=== PATIENT | male | born 1970 | race Two or more races ===

== ENCOUNTER 2021-03-23 15:58 | Inpatient (IN) | payer OTHER ==
[2021-03-23] MEDS ORDERED: PIPERACILLIN/TAZOB 4.5 GM 4.5 GM in DEXTROSE 5%-WATER 100 ML IVPB ONE (17:43)
[2021-03-23] MEDS ORDERED: VANCOMYCIN 1 GM in D5W (PRE-DOCKED) 1,000 MG/250 ML IVPB ONE (17:44)
[2021-03-23 18:17] LABS: BASO % 0.3 % (0-2.0); EOS % 1.7 % (0-4.5); HEMATOCRIT 43.2 % (35.4-49); HEMOGLOBIN 14.8 GM/dL (11.7-16.9); LYMPH % 13.3 % (8-40); MCH 29.8 pg (25.7-33.7); MCHC 34.2 g/dl (32.0-35.9); MEAN CELL VOLUME 87.3 fl (80-96); MEAN PLT VOLUME 8.1 fl (7.5-11.1); MONO % 10.3 % (3.8-10.2); NEUT % 74.4 % (42.8-82.8); PLATELET COUNT 290 10^3/uL (134-434); RBC 4.95 M/mm3 (4.00-5.60); RDW 12.7 % (11.9-15.9); WHITE BLOOD COUNT 10.6 K/mm3 (4.0-10.0)
[2021-03-23 18:39] LABS: ALBUMIN 3.4 g/dl (3.4-5.0); BLOOD UREA NITROGEN 13.4 mg/dL (7-18); CALCIUM 8.9 mg/dL (8.5-10.1)
[2021-03-23 18:42] LABS: CREATININE 0.7 mg/dL (0.55-1.3)
[2021-03-23 18:44] LABS: BILIRUBIN,TOTAL 0.5 mg/dL (0.2-1); TOT PROT 7.1 g/dl (6.4-8.2)
[2021-03-23] MEDS ORDERED: VANCOMYCIN 1 GRAM (PRE-DOCKED) 1,000 MG/250 ML BAG IVPB ONE (18:52)
[2021-03-23] MEDS ORDERED: PIPERACILLIN/TAZOB 4.5 GM 4.5 GM/100 ML BAG IVPB ONE (18:52)
[2021-03-23] MEDS: INSULIN SLIDING SCALE (NOVOLOG) 1 VIAL SQ SCH (22:30)
[2021-03-24 04:29] VITALS: BMI 27.3
[2021-03-24] MEDS: INSULIN SLIDING SCALE (NOVOLOG) 1 VIAL SQ SCH ×3 (06:11→16:45)
[2021-03-24] MEDS ORDERED: PIPERACILLIN/TAZOB 3.375 GM 3.375 GM in DEXTROSE 5%-WATER - 50 ML IVPB SCH (06:53)
[2021-03-24] MEDS: ACETAMINOPHEN 325 MG TABLET (FP) PO PRN ×2 (08:27→19:50)
[2021-03-24] MEDS ORDERED: DEXTROSE 5%-WATER - 50 ML IVPB ONE ×2 (09:09→16:38)
[2021-03-24] MEDS ORDERED: PIPERACILLIN/TAZOBACTAM 3.375 GM VIAL IVPB ONE ×2 (09:09→16:37)
[2021-03-24] MEDS: PIPERACILLIN/TAZOB 3.375 GM 3.375 GM in DEXTROSE 5%-WATER - 50 ML IVPB SCH ×2 (09:47→17:49)
[2021-03-24] MEDS: ENOXAPARIN NA (PORCINE) 40 MG/0.4 ML DISP.SYRIN SQ SCH (09:48)
[2021-03-24 10:14] LABS: HEMATOCRIT 40.7 % (35.4-49); HEMOGLOBIN 14.1 GM/dL (11.7-16.9); MCH 30.1 pg (25.7-33.7); MCHC 34.7 g/dl (32.0-35.9); MEAN CELL VOLUME 86.9 fl (80-96); MEAN PLT VOLUME 7.6 fl (7.5-11.1); PLATELET COUNT 261 10^3/uL (134-434); RBC 4.68 M/mm3 (4.00-5.60); RDW 12.4 % (11.9-15.9); WHITE BLOOD COUNT 9.5 K/mm3 (4.0-10.0)
[2021-03-24 10:32] LABS: CALCIUM 8.7 mg/dL (8.5-10.1)
[2021-03-24 10:33] LABS: ALBUMIN 3.2 g/dl (3.4-5.0); BLOOD UREA NITROGEN 10.5 mg/dL (7-18)
[2021-03-24 10:36] LABS: CREATININE 0.7 mg/dL (0.55-1.3); PHOSPHOROUS 2.6 mg/dL (2.5-4.9)
[2021-03-24 10:37] LABS: BILIRUBIN,TOTAL 0.6 mg/dL (0.2-1); CHOLESTEROL 154 mg/dL (50-200); TOT PROT 6.8 g/dl (6.4-8.2)
[2021-03-24 10:38] LABS: LDL CHOLESTEROL (ONLY SJRH) 90 mg/dL (5-100); TRIGLYCERIDES 109 mg/dL (0-150)
[2021-03-24 10:39] LABS: HDL CHOLESTEROL 45 mg/dL (40-60)
[2021-03-24] MEDS: COLLAGENASE CLOSTRIDIUM HIST. 30 GRAMS TUBE TP SCH (12:17)
[2021-03-24] MEDS: GABAPENTIN 100 MG CAPSULE PO SCH ×2 (12:17→22:02)
[2021-03-24] MEDS ORDERED: VANCOMYCIN 1 GM in D5W (PRE-DOCKED) 1,000 MG/250 ML IVPB SCH (19:00)
[2021-03-25] MEDS ORDERED: DEXTROSE 5%-WATER - 50 ML IVPB ONE ×3 (02:19→17:09)
[2021-03-25] MEDS ORDERED: PIPERACILLIN/TAZOBACTAM 3.375 GM VIAL IVPB ONE ×3 (02:19→17:09)
[2021-03-25] MEDS: PIPERACILLIN/TAZOB 3.375 GM 3.375 GM in DEXTROSE 5%-WATER - 50 ML IVPB SCH ×3 (02:27→18:28)
[2021-03-25] MEDS: ACETAMINOPHEN 325 MG TABLET (FP) PO PRN ×3 (02:37→23:11)
[2021-03-25] MEDS: INSULIN SLIDING SCALE (NOVOLOG) 1 VIAL SQ SCH ×3 (06:07→17:13)
[2021-03-25] MEDS ORDERED: INSULIN (LEVEMIR) 100 UNITS/ML UNITS SQ ONE (06:17)
[2021-03-25] MEDS ORDERED: INSULIN (LEVEMIR) 100 UNITS/ML UNITS SQ SCH ×2 (07:00→20:13)
[2021-03-25 10:21] LABS: BASO % 0.4 % (0-2.0); EOS % 1.3 % (0-4.5); HEMATOCRIT 40.3 % (35.4-49); HEMOGLOBIN 13.9 GM/dL (11.7-16.9); LYMPH % 10.1 % (8-40); MCH 29.8 pg (25.7-33.7); MCHC 34.5 g/dl (32.0-35.9); MEAN CELL VOLUME 86.3 fl (80-96); MONO % 10.6 % (3.8-10.2); NEUT % 77.6 % (42.8-82.8); PLATELET COUNT 289 10^3/uL (134-434); RBC 4.66 M/mm3 (4.00-5.60); RDW 12.5 % (11.9-15.9)
[2021-03-25 10:56] LABS: CALCIUM 8.4 mg/dL (8.5-10.1)
[2021-03-25 10:57] LABS: ALBUMIN 2.8 g/dl (3.4-5.0); BLOOD UREA NITROGEN 9.2 mg/dL (7-18); MAGNESIUM 1.8 mg/dL (1.8-2.4)
[2021-03-25 11:00] LABS: CREATININE 0.6 mg/dL (0.55-1.3); PHOSPHOROUS 2.8 mg/dL (2.5-4.9)
[2021-03-25 11:01] LABS: TOT PROT 6.3 g/dl (6.4-8.2)
[2021-03-25 11:02] LABS: BILIRUBIN,TOTAL 0.6 mg/dL (0.2-1)
[2021-03-25] MEDS: COLLAGENASE CLOSTRIDIUM HIST. 30 GRAMS TUBE TP SCH (11:03)
[2021-03-25] MEDS: GABAPENTIN 100 MG CAPSULE PO SCH ×2 (11:03→21:41)
[2021-03-25] MEDS: ENOXAPARIN NA (PORCINE) 40 MG/0.4 ML DISP.SYRIN SQ SCH (11:03)
[2021-03-26] MEDS ORDERED: PIPERACILLIN/TAZOBACTAM 3.375 GM VIAL IVPB ONE ×3 (01:13→15:50)
[2021-03-26] MEDS ORDERED: DEXTROSE 5%-WATER - 50 ML IVPB ONE ×3 (01:14→15:50)
[2021-03-26] MEDS: PIPERACILLIN/TAZOB 3.375 GM 3.375 GM in DEXTROSE 5%-WATER - 50 ML IVPB SCH ×3 (01:22→17:20)
[2021-03-26] MEDS: INSULIN SLIDING SCALE (NOVOLOG) 1 VIAL SQ SCH ×4 (06:01→21:09)
[2021-03-26] MEDS: metFORMIN HCL 500 MG TABLET (FP) PO SCH ×2 (06:01→16:05)
[2021-03-26] MEDS: ENOXAPARIN NA (PORCINE) 40 MG/0.4 ML DISP.SYRIN SQ SCH (08:59)
[2021-03-26] MEDS: GABAPENTIN 100 MG CAPSULE PO SCH ×2 (08:59→20:59)
[2021-03-26] MEDS ORDERED: INSULIN (NOVOLOG) ASPART 100 UNITS/ML 10ML VIAL ONE (11:47)
[2021-03-26] MEDS: COLLAGENASE CLOSTRIDIUM HIST. 30 GRAMS TUBE TP SCH (12:08)
[2021-03-26] MEDS ORDERED: GABAPENTIN 100 MG CAPSULE PO ONE (13:34)
[2021-03-26] MEDS: ACETAMINOPHEN 325 MG TABLET (FP) PO PRN (21:00)
[2021-03-26] MEDS: INSULIN (LEVEMIR) 100 UNITS/ML UNITS SQ SCH (21:03)
[2021-03-27] MEDS: PIPERACILLIN/TAZOB 3.375 GM 3.375 GM in DEXTROSE 5%-WATER - 50 ML IVPB SCH ×3 (01:40→17:22)
[2021-03-27] MEDS ORDERED: PIPERACILLIN/TAZOBACTAM 3.375 GM VIAL IVPB ONE ×3 (01:40→17:15)
[2021-03-27] MEDS ORDERED: DEXTROSE 5%-WATER - 50 ML IVPB ONE ×3 (01:40→17:15)
[2021-03-27] MEDS: INSULIN (LEVEMIR) 100 UNITS/ML UNITS SQ SCH ×2 (06:18→21:40)
[2021-03-27] MEDS: metFORMIN HCL 500 MG TABLET (FP) PO SCH (06:19)
[2021-03-27] MEDS: INSULIN SLIDING SCALE (NOVOLOG) 1 VIAL SQ SCH ×4 (06:19→21:39)
[2021-03-27] MEDS: GABAPENTIN 100 MG CAPSULE PO SCH ×2 (09:19→21:33)
[2021-03-27] MEDS: ENOXAPARIN NA (PORCINE) 40 MG/0.4 ML DISP.SYRIN SQ SCH (09:19)
[2021-03-27] MEDS: COLLAGENASE CLOSTRIDIUM HIST. 30 GRAMS TUBE TP SCH (09:19)
[2021-03-27 12:25] LABS: HEMOGLOBIN 13.7 GM/dL (11.7-16.9); MCH 29.9 pg (25.7-33.7); MCHC 34.2 g/dl (32.0-35.9); MEAN CELL VOLUME 87.4 fl (80-96); MEAN PLT VOLUME 7.6 fl (7.5-11.1); PLATELET COUNT 322 10^3/uL (134-434); RBC 4.58 M/mm3 (4.00-5.60); RDW 12.7 % (11.9-15.9); WHITE BLOOD COUNT 10.7 K/mm3 (4.0-10.0)
[2021-03-27 13:28] LABS: CALCIUM 8.7 mg/dL (8.5-10.1)
[2021-03-27 13:29] LABS: BLOOD UREA NITROGEN 10.3 mg/dL (7-18)
[2021-03-27 13:32] LABS: CREATININE 0.7 mg/dL (0.55-1.3); PHOSPHOROUS 3.6 mg/dL (2.5-4.9)
[2021-03-27] MEDS: SODIUM CHLORIDE 1,000 ML IV SCH (16:33)
[2021-03-27] MEDS: DOXYCYCLINE HYCLATE 100 MG CAPSULE PO SCH (17:22)
[2021-03-28] MEDS ORDERED: PIPERACILLIN/TAZOBACTAM 3.375 GM VIAL IVPB ONE ×3 (01:27→18:30)
[2021-03-28] MEDS ORDERED: DEXTROSE 5%-WATER - 50 ML IVPB ONE ×3 (01:27→18:31)
[2021-03-28] MEDS: PIPERACILLIN/TAZOB 3.375 GM 3.375 GM in DEXTROSE 5%-WATER - 50 ML IVPB SCH ×3 (01:31→18:35)
[2021-03-28] MEDS: SODIUM CHLORIDE 1,000 ML IV SCH ×2 (03:27→16:48)
[2021-03-28] MEDS: INSULIN (LEVEMIR) 100 UNITS/ML UNITS SQ SCH ×2 (06:07→21:36)
[2021-03-28] MEDS: INSULIN SLIDING SCALE (NOVOLOG) 1 VIAL SQ SCH ×4 (06:08→21:35)
[2021-03-28] MEDS ORDERED: LIDOCAINE HCL 1%, 10 MG/ML (20ML VIAL) ONE (11:21)
[2021-03-28] MEDS ORDERED: ONDANSETRON 4 MG/2 ML VIAL IVPUSH PRN (11:37)
[2021-03-28] MEDS ORDERED: PROMETHAZINE HCL 25 MG/1 ML VIAL IVPUSH PRN (11:37)
[2021-03-28] MEDS ORDERED: PROPOFOL 20 ML ONE (11:44)
[2021-03-28] MEDS ORDERED: MIDAZOLAM HCL 2 MG/2 ML SINGLE DOSE VIAL ONE (11:44)
[2021-03-28] MEDS ORDERED: LACTATED RINGERS SOLUTION 1,000 ML IV SCH (11:45)
[2021-03-28] MEDS ORDERED: GLYCOPYRROLATE 0.2 MG/1 ML VIAL ONE (11:45)
[2021-03-28] MEDS ORDERED: LIDOCAINE HCL/PF 2% SDV 5ML VIAL ONE (11:46)
[2021-03-28] MEDS ORDERED: BUPIVACAINE HCL/PF 0.5% (5MG/ML) 10 ML VIAL ONE (12:28)
[2021-03-28] MEDS ORDERED: BUPIVACAINE HCL/PF 0.5% (5 MG/ML) 30 ML VIAL IJ ONE (12:34)
[2021-03-28] MEDS ORDERED: ACETAMINOPHEN 1000 MG/100 ML BAG IVPB ONE (12:56)
[2021-03-28] MEDS: ENOXAPARIN NA (PORCINE) 40 MG/0.4 ML DISP.SYRIN SQ SCH (14:12)
[2021-03-28] MEDS: GABAPENTIN 100 MG CAPSULE PO SCH ×2 (14:12→21:35)
[2021-03-28] MEDS: DOXYCYCLINE HYCLATE 100 MG CAPSULE PO SCH ×2 (14:13→18:25)
[2021-03-28] MEDS: COLLAGENASE CLOSTRIDIUM HIST. 30 GRAMS TUBE TP SCH (14:13)
[2021-03-29] MEDS ORDERED: DEXTROSE 5%-WATER - 50 ML IVPB ONE ×3 (00:59→17:28)
[2021-03-29] MEDS ORDERED: PIPERACILLIN/TAZOBACTAM 3.375 GM VIAL IVPB ONE ×3 (00:59→17:27)
[2021-03-29] MEDS: PIPERACILLIN/TAZOB 3.375 GM 3.375 GM in DEXTROSE 5%-WATER - 50 ML IVPB SCH ×3 (01:03→17:57)
[2021-03-29] MEDS ORDERED: ONDANSETRON 4 MG/2 ML VIAL IVPB ONE (01:22)
[2021-03-29] MEDS: ACETAMINOPHEN 325 MG TABLET (FP) PO PRN (05:25)
[2021-03-29] MEDS: INSULIN SLIDING SCALE (NOVOLOG) 1 VIAL SQ SCH ×4 (06:00→21:26)
[2021-03-29] MEDS: INSULIN (LEVEMIR) 100 UNITS/ML UNITS SQ SCH ×2 (06:01→21:21)
[2021-03-29] MEDS: ENOXAPARIN NA (PORCINE) 40 MG/0.4 ML DISP.SYRIN SQ SCH (10:06)
[2021-03-29] MEDS: GABAPENTIN 100 MG CAPSULE PO SCH ×2 (10:07→21:21)
[2021-03-29] MEDS: COLLAGENASE CLOSTRIDIUM HIST. 30 GRAMS TUBE TP SCH (10:07)
[2021-03-29] MEDS: DOXYCYCLINE HYCLATE 100 MG CAPSULE PO SCH ×2 (10:07→17:57)
[2021-03-29 10:29] LABS: BASO % 0.5 % (0-2.0); EOS % 1.6 % (0-4.5); HEMATOCRIT 39.4 % (35.4-49); HEMOGLOBIN 13.1 GM/dL (11.7-16.9); LYMPH % 15.1 % (8-40); MCHC 33.1 g/dl (32.0-35.9); MEAN CELL VOLUME 87.7 fl (80-96); MEAN PLT VOLUME 7.7 fl (7.5-11.1); MONO % 9.6 % (3.8-10.2); NEUT % 73.2 % (42.8-82.8); PLATELET COUNT 346 10^3/uL (134-434); RDW 12.3 % (11.9-15.9); WHITE BLOOD COUNT 8.9 K/mm3 (4.0-10.0)
[2021-03-29 10:54] LABS: ALBUMIN 2.6 g/dl (3.4-5.0); BLOOD UREA NITROGEN 8.6 mg/dL (7-18); CALCIUM 8.5 mg/dL (8.5-10.1); MAGNESIUM 1.8 mg/dL (1.8-2.4)
[2021-03-29 10:56] LABS: PHOSPHOROUS 3.5 mg/dL (2.5-4.9)
[2021-03-29 10:57] LABS: CREATININE 0.7 mg/dL (0.55-1.3)
[2021-03-29 10:59] LABS: BILIRUBIN,TOTAL 0.4 mg/dL (0.2-1); TOT PROT 6.4 g/dl (6.4-8.2)
[2021-03-29] MEDS ORDERED: INSULIN (NOVOLOG) ASPART 100 UNITS/ML 10ML VIAL ONE (21:17)
[2021-03-30] MEDS ORDERED: DEXTROSE 5%-WATER - 50 ML IVPB ONE ×3 (01:15→17:19)
[2021-03-30] MEDS ORDERED: PIPERACILLIN/TAZOBACTAM 3.375 GM VIAL IVPB ONE ×3 (01:15→17:18)
[2021-03-30] MEDS: PIPERACILLIN/TAZOB 3.375 GM 3.375 GM in DEXTROSE 5%-WATER - 50 ML IVPB SCH ×3 (01:23→17:22)
[2021-03-30] MEDS: INSULIN SLIDING SCALE (NOVOLOG) 1 VIAL SQ SCH ×4 (06:23→21:08)
[2021-03-30] MEDS: INSULIN (LEVEMIR) 100 UNITS/ML UNITS SQ SCH ×2 (06:23→21:05)
[2021-03-30] MEDS: DOXYCYCLINE HYCLATE 100 MG CAPSULE PO SCH ×2 (09:24→17:22)
[2021-03-30] MEDS: GABAPENTIN 100 MG CAPSULE PO SCH ×2 (09:24→21:03)
[2021-03-30] MEDS: COLLAGENASE CLOSTRIDIUM HIST. 30 GRAMS TUBE TP SCH (09:25)
[2021-03-30] MEDS: ENOXAPARIN NA (PORCINE) 40 MG/0.4 ML DISP.SYRIN SQ SCH (09:25)
[2021-03-30 11:42] LABS: BASO % 0.6 % (0-2.0); EOS % 1.4 % (0-4.5); HEMATOCRIT 39.1 % (35.4-49); HEMOGLOBIN 12.9 GM/dL (11.7-16.9); LYMPH % 10.8 % (8-40); MCH 28.9 pg (25.7-33.7); MEAN CELL VOLUME 87.5 fl (80-96); MEAN PLT VOLUME 7.6 fl (7.5-11.1); MONO % 8.3 % (3.8-10.2); NEUT % 78.9 % (42.8-82.8); PLATELET COUNT 372 10^3/uL (134-434); RBC 4.46 M/mm3 (4.00-5.60); RDW 12.5 % (11.9-15.9)
[2021-03-30 12:07] LABS: ALBUMIN 2.7 g/dl (3.4-5.0); BLOOD UREA NITROGEN 10.3 mg/dL (7-18); CALCIUM 8.4 mg/dL (8.5-10.1); MAGNESIUM 1.8 mg/dL (1.8-2.4)
[2021-03-30 12:11] LABS: CREATININE 0.7 mg/dL (0.55-1.3); PHOSPHOROUS 3.6 mg/dL (2.5-4.9)
[2021-03-30 12:12] LABS: BILIRUBIN,TOTAL 0.5 mg/dL (0.2-1); TOT PROT 6.6 g/dl (6.4-8.2)
[2021-03-30] MEDS: ACETAMINOPHEN 325 MG TABLET (FP) PO PRN (15:21)
[2021-03-31] MEDS ORDERED: PIPERACILLIN/TAZOBACTAM 3.375 GM VIAL IVPB ONE ×3 (01:12→17:43)
[2021-03-31] MEDS ORDERED: DEXTROSE 5%-WATER - 50 ML IVPB ONE ×3 (01:12→17:43)
[2021-03-31] MEDS: PIPERACILLIN/TAZOB 3.375 GM 3.375 GM in DEXTROSE 5%-WATER - 50 ML IVPB SCH ×3 (01:15→17:46)
[2021-03-31] MEDS: ACETAMINOPHEN 325 MG TABLET (FP) PO PRN (03:13)
[2021-03-31] MEDS: INSULIN (LEVEMIR) 100 UNITS/ML UNITS SQ SCH ×2 (06:13→21:45)
[2021-03-31] MEDS: INSULIN SLIDING SCALE (NOVOLOG) 1 VIAL SQ SCH ×4 (06:14→21:45)
[2021-03-31] MEDS: DOXYCYCLINE HYCLATE 100 MG CAPSULE PO SCH ×2 (10:35→17:46)
[2021-03-31] MEDS: PANTOPRAZOLE 20 MG TABLET PO SCH (10:35)
[2021-03-31] MEDS: GABAPENTIN 100 MG CAPSULE PO SCH ×2 (10:35→21:43)
[2021-03-31 11:48] LABS: BASO % 0.5 % (0-2.0); EOS % 2.5 % (0-4.5); HEMATOCRIT 39.9 % (35.4-49); HEMOGLOBIN 13.5 GM/dL (11.7-16.9); LYMPH % 13.5 % (8-40); MCH 29.3 pg (25.7-33.7); MCHC 33.8 g/dl (32.0-35.9); MEAN CELL VOLUME 86.8 fl (80-96); MEAN PLT VOLUME 7.6 fl (7.5-11.1); MONO % 7.9 % (3.8-10.2); NEUT % 75.6 % (42.8-82.8); PLATELET COUNT 386 10^3/uL (134-434); RDW 12.4 % (11.9-15.9); WHITE BLOOD COUNT 9.4 K/mm3 (4.0-10.0)
[2021-03-31 12:10] LABS: ALBUMIN 2.7 g/dl (3.4-5.0)
[2021-03-31 12:11] LABS: MAGNESIUM 1.9 mg/dL (1.8-2.4)
[2021-03-31 12:12] LABS: BLOOD UREA NITROGEN 11.4 mg/dL (7-18)
[2021-03-31 12:13] LABS: BILIRUBIN,TOTAL 0.5 mg/dL (0.2-1); TOT PROT 6.9 g/dl (6.4-8.2)
[2021-03-31 12:14] LABS: CREATININE 0.7 mg/dL (0.55-1.3)
[2021-03-31] MEDS: COLLAGENASE CLOSTRIDIUM HIST. 30 GRAMS TUBE TP SCH (13:01)
[2021-03-31 16:41] LABS: PH,URINE 5.5 (5.0-8.0); URINE APPEARANCE CLEAR; URINE BILIRUBIN NEGATIVE (NEGATIVE); URINE COLOR YELLOW; URINE GLUCOSE (UA) NEGATIVE (NEGATIVE); URINE KETONE NEGATIVE (NEGATIVE); URINE LEUK ESTERASE NEGATIVE (NEGATIVE); URINE NITRITE NEGATIVE (NEGATIVE); URINE PROTEIN NEGATIVE (NEGATIVE); URINE UROBILINOGEN 0.2 mg/dL (0.2-1.0)
[2021-04-01] MEDS ORDERED: DEXTROSE 5%-WATER - 50 ML IVPB ONE ×2 (00:22→09:15)
[2021-04-01] MEDS ORDERED: PIPERACILLIN/TAZOBACTAM 3.375 GM VIAL IVPB ONE ×2 (00:22→09:15)
[2021-04-01] MEDS: PIPERACILLIN/TAZOB 3.375 GM 3.375 GM in DEXTROSE 5%-WATER - 50 ML IVPB SCH ×2 (01:10→09:22)
[2021-04-01] MEDS: INSULIN (LEVEMIR) 100 UNITS/ML UNITS SQ SCH ×2 (06:12→21:11)
[2021-04-01] MEDS: INSULIN SLIDING SCALE (NOVOLOG) 1 VIAL SQ SCH ×3 (06:12→16:31)
[2021-04-01] MEDS: ACETAMINOPHEN 325 MG TABLET (FP) PO PRN (06:18)
[2021-04-01 09:07] LABS: CALCIUM 8.5 mg/dL (8.5-10.1)
[2021-04-01 09:08] LABS: ALBUMIN 2.8 g/dl (3.4-5.0); MAGNESIUM 1.8 mg/dL (1.8-2.4)
[2021-04-01 09:09] LABS: BASO % 0.7 % (0-2.0); EOS % 2.7 % (0-4.5); HEMATOCRIT 41.3 % (35.4-49); HEMOGLOBIN 14.1 GM/dL (11.7-16.9); MCH 29.6 pg (25.7-33.7); MCHC 34.1 g/dl (32.0-35.9); MEAN CELL VOLUME 86.9 fl (80-96); MEAN PLT VOLUME 7.2 fl (7.5-11.1); MONO % 8.6 % (3.8-10.2); PLATELET COUNT 389 10^3/uL (134-434); RBC 4.75 M/mm3 (4.00-5.60); RDW 12.5 % (11.9-15.9); WHITE BLOOD COUNT 9.2 K/mm3 (4.0-10.0)
[2021-04-01 09:11] LABS: CREATININE 0.8 mg/dL (0.55-1.3); PHOSPHOROUS 3.6 mg/dL (2.5-4.9)
[2021-04-01 09:12] LABS: TOT PROT 7.2 g/dl (6.4-8.2)
[2021-04-01 09:16] LABS: BILIRUBIN,TOTAL 0.4 mg/dL (0.2-1)
[2021-04-01] MEDS: GABAPENTIN 100 MG CAPSULE PO SCH ×2 (09:21→21:11)
[2021-04-01] MEDS: PANTOPRAZOLE 20 MG TABLET PO SCH (09:21)
[2021-04-01] MEDS: DOXYCYCLINE HYCLATE 100 MG CAPSULE PO SCH (09:21)
[2021-04-01] MEDS ORDERED: SODIUM CHLORIDE 100 ML IVPB ONE (14:03)
[2021-04-01] MEDS: SODIUM CHLORIDE 1,000 ML IV SCH (14:16)
[2021-04-01] MEDS: CEFTRIAXONE IVPB SCH (14:18)
[2021-04-01] MEDS: SODIUM CHLORIDE IVPB SCH (14:18)
[2021-04-01] MEDS: INSULIN (NOVOLOG) ASPART 100 UNITS/ML 10ML VIAL SQ SCH (16:31)
[2021-04-01] MEDS ORDERED: PIPERACILLIN/TAZOB 3.375 GM 3.375 GM in DEXTROSE 5%-WATER - 50 ML IVPB SCH (18:00)
[2021-04-02] MEDS: SODIUM CHLORIDE 1,000 ML IV SCH ×2 (01:08→17:15)
[2021-04-02] MEDS: INSULIN (NOVOLOG) ASPART 100 UNITS/ML 10ML VIAL SQ SCH ×3 (06:23→17:14)
[2021-04-02] MEDS: INSULIN (LEVEMIR) 100 UNITS/ML UNITS SQ SCH ×2 (06:24→21:19)
[2021-04-02] MEDS: INSULIN SLIDING SCALE (NOVOLOG) 1 VIAL SQ SCH ×3 (06:24→17:14)
[2021-04-02 09:34] LABS: BASO % 0.8 % (0-2.0); EOS % 2.7 % (0-4.5); HEMATOCRIT 39.8 % (35.4-49); HEMOGLOBIN 13.1 GM/dL (11.7-16.9); LYMPH % 19.1 % (8-40); MCH 28.9 pg (25.7-33.7); MCHC 32.9 g/dl (32.0-35.9); MEAN CELL VOLUME 87.9 fl (80-96); MEAN PLT VOLUME 7.4 fl (7.5-11.1); MONO % 9.4 % (3.8-10.2); PLATELET COUNT 391 10^3/uL (134-434); RBC 4.53 M/mm3 (4.00-5.60); RDW 12.5 % (11.9-15.9); WHITE BLOOD COUNT 8.3 K/mm3 (4.0-10.0)
[2021-04-02 10:08] LABS: CALCIUM 8.6 mg/dL (8.5-10.1)
[2021-04-02 10:09] LABS: ALBUMIN 2.7 g/dl (3.4-5.0); BLOOD UREA NITROGEN 14.6 mg/dL (7-18)
[2021-04-02 10:11] LABS: MAGNESIUM 1.8 mg/dL (1.8-2.4)
[2021-04-02] MEDS ORDERED: SODIUM CHLORIDE 100 ML IVPB ONE (10:11)
[2021-04-02 10:12] LABS: CREATININE 0.7 mg/dL (0.55-1.3); PHOSPHOROUS 2.7 mg/dL (2.5-4.9)
[2021-04-02 10:13] LABS: BILIRUBIN,TOTAL 0.4 mg/dL (0.2-1); TOT PROT 6.6 g/dl (6.4-8.2)
[2021-04-02] MEDS: SODIUM CHLORIDE IVPB SCH (10:16)
[2021-04-02] MEDS: CEFTRIAXONE IVPB SCH (10:16)
[2021-04-02] MEDS: PANTOPRAZOLE 20 MG TABLET PO SCH (10:17)
[2021-04-02] MEDS: GABAPENTIN 100 MG CAPSULE PO SCH ×2 (10:17→21:19)
[2021-04-03] MEDS: INSULIN (NOVOLOG) ASPART 100 UNITS/ML 10ML VIAL SQ SCH ×3 (06:53→16:50)
[2021-04-03] MEDS: INSULIN SLIDING SCALE (NOVOLOG) 1 VIAL SQ SCH ×3 (06:53→16:51)
[2021-04-03] MEDS: INSULIN (LEVEMIR) 100 UNITS/ML UNITS SQ SCH (06:54)
[2021-04-03 09:16] LABS: BASO % 0.6 % (0-2.0); EOS % 3.2 % (0-4.5); HEMATOCRIT 38.4 % (35.4-49); HEMOGLOBIN 13.2 GM/dL (11.7-16.9); LYMPH % 17.5 % (8-40); MCH 29.9 pg (25.7-33.7); MCHC 34.4 g/dl (32.0-35.9); MEAN CELL VOLUME 86.9 fl (80-96); MEAN PLT VOLUME 7.4 fl (7.5-11.1); MONO % 9.5 % (3.8-10.2); NEUT % 69.2 % (42.8-82.8); PLATELET COUNT 346 10^3/uL (134-434); RBC 4.42 M/mm3 (4.00-5.60); RDW 12.5 % (11.9-15.9); WHITE BLOOD COUNT 8.1 K/mm3 (4.0-10.0)
[2021-04-03 09:48] LABS: CALCIUM 8.5 mg/dL (8.5-10.1)
[2021-04-03 09:49] LABS: BLOOD UREA NITROGEN 15.4 mg/dL (7-18)
[2021-04-03] MEDS ORDERED: SODIUM CHLORIDE 100 ML IVPB ONE (09:49)
[2021-04-03 09:50] LABS: ALBUMIN 2.8 g/dl (3.4-5.0)
[2021-04-03 09:52] LABS: CREATININE 0.7 mg/dL (0.55-1.3)
[2021-04-03 09:53] LABS: TOT PROT 6.8 g/dl (6.4-8.2)
[2021-04-03] MEDS: GABAPENTIN 100 MG CAPSULE PO SCH (09:55)
[2021-04-03 09:56] LABS: BILIRUBIN,TOTAL 0.5 mg/dL (0.2-1)
[2021-04-03] MEDS: SODIUM CHLORIDE IVPB SCH (09:56)
[2021-04-03] MEDS: PANTOPRAZOLE 20 MG TABLET PO SCH (09:56)
[2021-04-03] MEDS: CEFTRIAXONE IVPB SCH (09:56)
[2021-04-03 14:39] VITALS: BP 149/89; PULSE 93; TEMP 98.6
[2021-04-03] MEDS: SODIUM CHLORIDE 1,000 ML IV SCH (14:40)
== END 2021-04-03 18:11 | disposition home health service (06) | DRG 572 ==
LOC: SUATTDRO 15:58 → JER 15:58 → JERBED 19:14 → J6S 03-24 04:01
PROVIDERS: ADMIT Internal Medicine
PROC: 0JBQ0ZZ Excision of Right Foot Subcutaneous Tissue and Fascia, Open Approach (ICD-10-PCS; principal; 2021-03-28 12:00)
PROC: 05HB33Z Insertion of Infusion Device into Right Basilic Vein, Percutaneous Approach (ICD-10-PCS; 2021-04-03)
PROC: B51MZZA Fluoroscopy of Right Upper Extremity Veins, Guidance (ICD-10-PCS; 2021-04-03)
DX: L03.115 Cellulitis of right lower limb (principal); E11.40 Type 2 diabetes mellitus with diabetic neuropathy, unspecified; E11.65 Type 2 diabetes mellitus with hyperglycemia; E11.621 Type 2 diabetes mellitus with foot ulcer; Z79.4 Long term (current) use of insulin
CPT/HCPCS: 36415; 36569; 71045-TC-FY; 73630-TC-RT-FY; 73718-TC-RT; 77001-TC-FY; 80048; 80053; 80061; 81003; 82962; 83036; 83605; 83735; 84100; 85025; 85027; 87040; 87070; 87076; 87077; 87086; 87205; 93005; 93010; 93926-TC; 94760; 97116-GP; 99285-25; C1751; C9803; G0463-25; U0003; U0005

== ENCOUNTER 2021-10-11 11:05 | Emergency (ER) | payer OTHER ==
[2021-10-11 11:10] VITALS: BP 153/95; PULSE 90; RESP 20; TEMP 98.6; BMI 30.8
[2021-10-11 11:44] LABS: BASO % 0.5 % (0-2.0); EOS % 3.2 % (0-4.5); HEMATOCRIT 43.2 % (35.4-49); HEMOGLOBIN 15.1 GM/dL (11.7-16.9); LYMPH % 18.1 % (8-40); MCH 29.3 pg (25.7-33.7); MCHC 34.9 g/dl (32.0-35.9); MEAN CELL VOLUME 83.9 fl (80-96); MEAN PLT VOLUME 7.7 fl (7.5-11.1); MONO % 7.5 % (3.8-10.2); NEUT % 70.7 % (42.8-82.8); PLATELET COUNT 240 10^3/uL (134-434); RBC 5.15 M/mm3 (4.00-5.60); WHITE BLOOD COUNT 8.3 K/mm3 (4.0-10.0)
[2021-10-11 11:50] LABS: INR 0.96 (0.83-1.09)
[2021-10-11] MEDS ORDERED: ASPIRIN 81 MG CHEWABLE TABLETS PO ONE (11:52)
[2021-10-11 11:53] LABS: ACTIVATED PTT 31.4 SECONDS (25.2-36.5)
[2021-10-11 12:01] LABS: CALCIUM 8.2 mg/dL (8.5-10.1)
[2021-10-11] MEDS ORDERED: ASPIRIN 81 MG CHEWABLE TABLETS ONE (12:01)
[2021-10-11 12:02] LABS: ALBUMIN 3.5 g/dl (3.4-5.0); BLOOD UREA NITROGEN 17.6 mg/dL (7-18); MAGNESIUM 1.8 mg/dL (1.8-2.4)
[2021-10-11 12:05] LABS: CREATININE 0.8 mg/dL (0.55-1.3)
[2021-10-11 12:06] LABS: TOT PROT 6.7 g/dl (6.4-8.2)
[2021-10-11 12:07] LABS: BILIRUBIN,TOTAL 0.5 mg/dL (0.2-1)
[2021-10-11] MEDS ORDERED: LIDOCAINE 5% TOPICAL PATCH TP ONE (14:36)
[2021-10-11] MEDS ORDERED: KETOROLAC TROMETHAMINE 15 MG/ML VIAL IVPUSH ONE (14:36)
[2021-10-11] MEDS ORDERED: LIDOCAINE 5% TOPICAL PATCH ONE (14:51)
[2021-10-11] MEDS ORDERED: KETOROLAC TROMETHAMINE 15 MG/ML VIAL ONE (14:51)
== END 2021-10-11 15:40 | disposition home or self-care (01) ==
LOC: JER 11:05
PROC: 3E033GC Introduction of Other Therapeutic Substance into Peripheral Vein, Percutaneous Approach (ICD-10-PCS; principal; 2021-10-11)
DX: R07.9 Chest pain, unspecified (principal)
CPT/HCPCS: 36415; 71045-TC-FY; 80053; 82962; 83735; 84484; 85025; 85610; 85730; 93005; 93010; 99285-25

== ENCOUNTER 2023-12-15 19:08 | Inpatient (IN) | payer OTHER ==
[2023-12-15 20:51] LABS: BASO % 0.5 % (0-2.0); EOS % 3.3 % (0-4.5); HEMATOCRIT 44.3 % (35.4-49); HEMOGLOBIN 14.8 GM/dL (11.7-16.9); LYMPH % 17.1 % (8-40); MCH 28.7 pg (25.7-33.7); MCHC 33.5 g/dl (32.0-35.9); MEAN CELL VOLUME 85.7 fl (80-96); MEAN PLT VOLUME 8.2 fl (7.5-11.1); MONO % 7.8 % (3.8-10.2); NEUT % 71.3 % (42.8-82.8); PLATELET COUNT 244 10^3/uL (134-434); RBC 5.17 M/mm3 (4.00-5.60); RDW 15.5 % (11.9-15.9); WHITE BLOOD COUNT 9.7 K/mm3 (4.0-10.0)
[2023-12-15 21:11] LABS: CALCIUM 8.4 mg/dL (8.5-10.1)
[2023-12-15 21:12] LABS: ALBUMIN 3.3 g/dl (3.4-5.0); BLOOD UREA NITROGEN 18.8 mg/dL (7-18)
[2023-12-15 21:15] LABS: CREATININE 1.2 mg/dL (0.55-1.3)
[2023-12-15 21:16] LABS: TOT PROT 6.7 g/dl (6.4-8.2)
[2023-12-15 21:17] LABS: BILIRUBIN,TOTAL 0.7 mg/dL (0.2-1)
[2023-12-15 21:20] LABS: N-TERMINAL BNP 5100.5 pg/ml (5-125)
[2023-12-15] MEDS ORDERED: FUROSEMIDE 40 MG/4 ML INJECTABLE VIAL ONE (21:31)
[2023-12-15] MEDS: FUROSEMIDE 40 MG/4 ML INJECTABLE VIAL IVPUSH ONE (22:06)
[2023-12-15 22:08] LABS: HIV INTERPRETATION NEGATIVE (NEGATIVE)
[2023-12-15] MEDS ORDERED: ceFAZolin SODIUM 1 GM VIAL ONE (22:25)
[2023-12-15] MEDS ORDERED: DEXTROSE 5%-WATER 100 ML IVPB ONE (22:28)
[2023-12-15] MEDS: CEFAZOLIN 1 GM in DEXTROSE 5%-WATER - 50 ML IVPB ONE (22:44)
[2023-12-16 04:20] VITALS: BMI 37.7
[2023-12-16] MEDS: PANTOPRAZOLE 20 MG TABLET PO SCH (07:30)
[2023-12-16] MEDS: INSULIN ASPART SLIDING SCALE (NOVOLOG) 1 VIAL SQ SCH (08:12)
[2023-12-16 10:06] LABS: HEMATOCRIT 44.1 % (35.4-49); HEMOGLOBIN 14.3 GM/dL (11.7-16.9); MCH 28.3 pg (25.7-33.7); MCHC 32.5 g/dl (32.0-35.9); MEAN PLT VOLUME 8.3 fl (7.5-11.1); PLATELET COUNT 240 10^3/uL (134-434); RBC 5.07 M/mm3 (4.00-5.60); RDW 15.5 % (11.9-15.9); WHITE BLOOD COUNT 10.1 K/mm3 (4.0-10.0)
[2023-12-16 10:21] LABS: POTASSIUM 4.3 mmol/L (3.5-5.1)
[2023-12-16 10:26] LABS: CALCIUM 8.5 mg/dL (8.5-10.1)
[2023-12-16 10:27] LABS: ALBUMIN 3.3 g/dl (3.4-5.0); BLOOD UREA NITROGEN 19.5 mg/dL (7-18); MAGNESIUM 2.2 mg/dL (1.8-2.4)
[2023-12-16 10:31] LABS: BILIRUBIN,TOTAL 0.6 mg/dL (0.2-1); TOT PROT 6.5 g/dl (6.4-8.2)
[2023-12-16] MEDS: EMPAGLIFLOZIN (JARDIANCE) 10 MG TABLET PO SCH (10:45)
[2023-12-16] MEDS: ENOXAPARIN NA (PORCINE) 40 MG/0.4 ML DISP.SYRIN SQ SCH (10:45)
[2023-12-16] MEDS: FUROSEMIDE 40 MG/4 ML INJECTABLE VIAL IVPUSH SCH ×2 (10:45→16:51)
[2023-12-16 14:59] LABS: EPI CELLS 11 /uL (0-25.1); HYALINE CASTS 1 /uL (0-3.1); PH,URINE 5.5 (5.0-8.0); URINE APPEARANCE CLEAR; URINE BACTERIA 11 /uL (0-1359); URINE BILIRUBIN NEGATIVE (NEGATIVE); URINE COLOR YELLOW; URINE GLUCOSE (UA) 3+ (NEGATIVE); URINE KETONE NEGATIVE (NEGATIVE); URINE LEUK ESTERASE NEGATIVE (NEGATIVE); URINE NITRITE NEGATIVE (NEGATIVE); URINE PROTEIN 2+ (NEGATIVE); URINE RBC 11 /uL (0-23.9); URINE UROBILINOGEN 0.2 mg/dL (0.2-1.0); URINE WBC 35 /uL (0-25.8)
[2023-12-16] MEDS: CEPHALEXIN MONOHYDRATE 500 MG CAPSULE (UD) PO SCH (17:15)
[2023-12-16] MEDS: SACUBITRIL/VALSARTAN 24 MG-26 MG TABLET PO SCH (22:25)
[2023-12-16] MEDS: hydrALAZINE HCL 25 MG TABLET (FP) PO PRN (22:25)
[2023-12-17 09:17] LABS: BASO % 0.4 % (0-2.0); EOS % 2.3 % (0-4.5); HEMATOCRIT 44.9 % (35.4-49); HEMOGLOBIN 14.4 GM/dL (11.7-16.9); LYMPH % 12.8 % (8-40); MCHC 32.1 g/dl (32.0-35.9); MEAN CELL VOLUME 87.5 fl (80-96); MEAN PLT VOLUME 8.2 fl (7.5-11.1); MONO % 9.4 % (3.8-10.2); NEUT % 75.1 % (42.8-82.8); PLATELET COUNT 239 10^3/uL (134-434); RBC 5.14 M/mm3 (4.00-5.60); RDW 15.1 % (11.9-15.9); WHITE BLOOD COUNT 11.3 K/mm3 (4.0-10.0)
[2023-12-17 09:31] LABS: POTASSIUM 3.8 mmol/L (3.5-5.1)
[2023-12-17 09:34] LABS: BLOOD UREA NITROGEN 19.7 mg/dL (7-18)
[2023-12-17 09:37] LABS: CREATININE 0.9 mg/dL (0.55-1.3)
[2023-12-18 03:26] VITALS: RESP 18
[2023-12-18 05:48] VITALS: TEMP 98.2
[2023-12-18 08:55] LABS: BASO % 0.7 % (0-2.0); EOS % 3.5 % (0-4.5); HEMATOCRIT 48.6 % (35.4-49); HEMOGLOBIN 15.9 GM/dL (11.7-16.9); MCH 28.6 pg (25.7-33.7); MCHC 32.8 g/dl (32.0-35.9); MEAN CELL VOLUME 87.1 fl (80-96); MEAN PLT VOLUME 8.1 fl (7.5-11.1); MONO % 10.2 % (3.8-10.2); NEUT % 72.6 % (42.8-82.8); PLATELET COUNT 267 10^3/uL (134-434); RBC 5.58 M/mm3 (4.00-5.60); RDW 15.1 % (11.9-15.9); WHITE BLOOD COUNT 10.4 K/mm3 (4.0-10.0)
[2023-12-18 09:09] LABS: POTASSIUM 3.8 mmol/L (3.5-5.1)
[2023-12-18 09:21] LABS: CALCIUM 8.3 mg/dL (8.5-10.1)
[2023-12-18 09:22] LABS: ALBUMIN 3.3 g/dl (3.4-5.0)
[2023-12-18 09:24] LABS: BLOOD UREA NITROGEN 17.1 mg/dL (7-18)
[2023-12-18 09:26] LABS: BILIRUBIN,TOTAL 0.9 mg/dL (0.2-1)
[2023-12-18 09:27] LABS: TOT PROT 6.7 g/dl (6.4-8.2)
[2023-12-18 13:38] VITALS: BP 135/91; PULSE 88
== END 2023-12-18 14:42 | disposition home or self-care (01) | DRG 291 ==
LOC: JER 19:08 → JERBED 22:07 → OBSVTOIN 12-16 02:44 → J8W 12-16 03:30 → J4W 12-17 15:57
PROVIDERS: ADMIT Internal Medicine; ATTEND Nurse Practitioner Family
DX: I11.0 Hypertensive heart disease with heart failure (principal); I50.23 Acute on chronic systolic (congestive) heart failure; L03.116 Cellulitis of left lower limb; E11.40 Type 2 diabetes mellitus with diabetic neuropathy, unspecified; E66.9 Obesity, unspecified; Z68.36 Body mass index [BMI] 36.0-36.9, adult; K21.9 Gastro-esophageal reflux disease without esophagitis; I16.0 Hypertensive urgency; Z91.148 Patient's other noncompliance with medication regimen for other reason
CPT/HCPCS: 36415; 71046-TC-FY; 80048; 80053; 81003; 82962; 83036; 83735; 83880; 84100; 84484; 85025; 85027; 86803; 87389; 93005; 93010; 93970-TC; 97116-GP; 97161-GP; 99285-25; G0378

== ENCOUNTER 2024-03-28 17:11 | Inpatient (IN) | payer OTHER ==
[2024-03-28] MEDS ORDERED: PIPERACILLIN/TAZOB 4.5 GM 4.5 GM/100 ML BAG IVPB ONE (18:31)
[2024-03-28] MEDS: PIPERACILLIN/TAZOB 4.5 GM 4.5 GM in DEXTROSE 5%-WATER 100 ML IVPB ONE (18:40)
[2024-03-28 18:42] LABS: BASO % 0.3 % (0-2.0); EOS % 1.9 % (0-4.5); HEMATOCRIT 40.2 % (35.4-49); HEMOGLOBIN 13.7 GM/dL (11.7-16.9); LYMPH % 10.5 % (8-40); MCHC 34.2 g/dl (32.0-35.9); MEAN CELL VOLUME 84.7 fl (80-96); MEAN PLT VOLUME 8.6 fl (7.5-11.1); MONO % 9.1 % (3.8-10.2); NEUT % 78.2 % (42.8-82.8); PLATELET COUNT 235 10^3/uL (134-434); RBC 4.74 M/mm3 (4.00-5.60); RDW 15.2 % (11.9-15.9)
[2024-03-28 18:51] LABS: POTASSIUM 4.4 mmol/L (3.5-5.1)
[2024-03-28 18:53] LABS: CALCIUM 9.1 mg/dL (8.5-10.1)
[2024-03-28 18:54] LABS: ALBUMIN 3.9 g/dl (3.4-5.0)
[2024-03-28 18:57] LABS: CREATININE 1.2 mg/dL (0.55-1.3)
[2024-03-28 18:59] LABS: BILIRUBIN,TOTAL 0.6 mg/dL (0.2-1); TOT PROT 7.5 g/dl (6.4-8.2)
[2024-03-28 19:54] LABS: HIV INTERPRETATION NEGATIVE (NEGATIVE)
[2024-03-28 20:05] LABS: ERYTHROCYTE SEDIMENTATION RATE 32 mm/hr (0-20)
[2024-03-28] MEDS ORDERED: VANCOMYCIN 1 GM PREMIX (F) 1 GM/200 ML BAG ONE (21:24)
[2024-03-28] MEDS: VANCOMYCIN 1,000 MG in DEXTROSE 5%-WATER - 250 ML IVPB ONE (21:40)
[2024-03-29] MEDS: INSULIN (LEVEMIR) 100 UNITS/ML UNITS SQ ONE (01:15)
[2024-03-29] MEDS: PIPERACILLIN/TAZOB 3.375 GM 50 ML IVPB SCH ×2 (03:48→17:56)
[2024-03-29 04:45] VITALS: BMI 32.4
[2024-03-29] MEDS: INSULIN ASPART SLIDING SCALE (NOVOLOG) 1 VIAL SQ SCH (06:35)
[2024-03-29 09:14] LABS: HEMATOCRIT 38.1 % (35.4-49); HEMOGLOBIN 12.7 GM/dL (11.7-16.9); MCH 28.6 pg (25.7-33.7); MCHC 33.3 g/dl (32.0-35.9); MEAN CELL VOLUME 85.6 fl (80-96); MEAN PLT VOLUME 8.6 fl (7.5-11.1); PLATELET COUNT 210 10^3/uL (134-434); RBC 4.45 M/mm3 (4.00-5.60); RDW 14.8 % (11.9-15.9); WHITE BLOOD COUNT 11.9 K/mm3 (4.0-10.0)
[2024-03-29] MEDS: ENOXAPARIN NA (PORCINE) 40 MG/0.4 ML DISP.SYRIN SQ SCH (09:15)
[2024-03-29] MEDS: INSULIN (LEVEMIR) 100 UNITS/ML UNITS SQ SCH (09:18)
[2024-03-29] MEDS: FUROSEMIDE 40 MG TABLET (FP) PO SCH (09:18)
[2024-03-29 09:22] LABS: POTASSIUM 4.3 mmol/L (3.5-5.1)
[2024-03-29 09:24] LABS: CALCIUM 8.6 mg/dL (8.5-10.1); MAGNESIUM 1.9 mg/dL (1.8-2.4)
[2024-03-29 09:28] LABS: PHOSPHOROUS 3.1 mg/dL (2.5-4.9)
[2024-03-29] MEDS: EMPAGLIFLOZIN (JARDIANCE) 10 MG TABLET PO ONE (13:29)
[2024-03-29] MEDS: SACUBITRIL/VALSARTAN 24 MG-26 MG TABLET PO SCH (13:29)
[2024-03-29] MEDS: SPIRONOLACTONE 25 MG TABLET PO SCH (13:29)
[2024-03-30] MEDS: EMPAGLIFLOZIN (JARDIANCE) 10 MG TABLET PO SCH (09:24)
[2024-03-30 09:56] LABS: POTASSIUM 4.2 mmol/L (3.5-5.1)
[2024-03-30 10:01] LABS: ALBUMIN 3.2 g/dl (3.4-5.0); CALCIUM 8.4 mg/dL (8.5-10.1)
[2024-03-30 10:07] LABS: TOT PROT 6.9 g/dl (6.4-8.2)
[2024-03-30] MEDS: INSULIN (NOVOLOG) ASPART 100 UNITS/ML 10ML VIAL SQ SCH (17:52)
[2024-03-31] MEDS ORDERED: PIPERACILLIN/TAZOB 3.375 GM 50 ML IVPB SCH (03:00)
[2024-03-31] MEDS: MAG HYDROX/AL HYDROX/SIMETH 30 ML UNIT-DOSE CUP PO ONE (06:04)
[2024-03-31 10:06] LABS: BASO % 0.9 % (0-2.0); EOS % 3.6 % (0-4.5); HEMATOCRIT 39.5 % (35.4-49); HEMOGLOBIN 13.4 GM/dL (11.7-16.9); LYMPH % 16.6 % (8-40); MCH 28.9 pg (25.7-33.7); MCHC 33.8 g/dl (32.0-35.9); MEAN CELL VOLUME 85.3 fl (80-96); MEAN PLT VOLUME 8.4 fl (7.5-11.1); MONO % 9.4 % (3.8-10.2); NEUT % 69.5 % (42.8-82.8); PLATELET COUNT 243 10^3/uL (134-434); RBC 4.63 M/mm3 (4.00-5.60); WHITE BLOOD COUNT 7.6 K/mm3 (4.0-10.0)
[2024-03-31 10:59] LABS: CALCIUM 8.2 mg/dL (8.5-10.1)
[2024-03-31 11:00] LABS: BLOOD UREA NITROGEN 21.9 mg/dL (7-18)
[2024-04-01] MEDS: EMPAGLIFLOZIN (JARDIANCE) 10 MG TABLET PO SCH (06:27)
[2024-04-01] MEDS: COLLAGENASE CLOSTRIDIUM HIST. 30 GRAMS TUBE TP SCH (10:44)
[2024-04-01] MEDS ORDERED: ASPIRIN COATED 81 MG TABLET.EC PO ONE (14:25)
[2024-04-01] MEDS: MECLIZINE HCL 12.5 MG TABLET PO ONE (14:36)
[2024-04-01] MEDS: ASPIRIN COATED 81 MG TABLET.EC PO ONE (14:36)
[2024-04-01] MEDS: NITROGLYCERIN SUBLINGUAL 1/150 0.4 MG TAB SL ONE (14:36)
[2024-04-01] MEDS: ACETAMINOPHEN 500 MG TABLET (FP) PO ONE (15:05)
[2024-04-01 16:32] LABS: BASO % 0.7 % (0-2.0); EOS % 3.1 % (0-4.5); HEMOGLOBIN 14.4 GM/dL (11.7-16.9); LYMPH % 15.6 % (8-40); MCH 29.2 pg (25.7-33.7); MCHC 34.2 g/dl (32.0-35.9); MEAN CELL VOLUME 85.3 fl (80-96); MEAN PLT VOLUME 8.5 fl (7.5-11.1); MONO % 8.2 % (3.8-10.2); NEUT % 72.4 % (42.8-82.8); PLATELET COUNT 296 10^3/uL (134-434); RBC 4.93 M/mm3 (4.00-5.60); WHITE BLOOD COUNT 9.3 K/mm3 (4.0-10.0)
[2024-04-01 17:00] LABS: POTASSIUM 4.3 mmol/L (3.5-5.1)
[2024-04-01 17:02] LABS: CALCIUM 8.4 mg/dL (8.5-10.1)
[2024-04-01 17:03] LABS: ALBUMIN 3.3 g/dl (3.4-5.0); BLOOD UREA NITROGEN 20.7 mg/dL (7-18)
[2024-04-01 17:06] LABS: CREATININE 1.2 mg/dL (0.55-1.3)
[2024-04-01 17:08] LABS: BILIRUBIN,TOTAL 0.4 mg/dL (0.2-1); TOT PROT 7.1 g/dl (6.4-8.2)
[2024-04-01] MEDS: AMOX TR/POT CLAV 875MG/125MG TABLETS (FP) PO SCH (17:20)
[2024-04-01 19:12] VITALS: RESP 18
[2024-04-02] MEDS: ASPIRIN COATED 81 MG TABLET.EC PO SCH (09:43)
[2024-04-02 12:02] LABS: HEMATOCRIT 39.9 % (35.4-49); HEMOGLOBIN 13.9 GM/dL (11.7-16.9); MCH 29.5 pg (25.7-33.7); MCHC 34.7 g/dl (32.0-35.9); MEAN CELL VOLUME 84.9 fl (80-96); MEAN PLT VOLUME 8.4 fl (7.5-11.1); PLATELET COUNT 277 10^3/uL (134-434); RDW 14.9 % (11.9-15.9); WHITE BLOOD COUNT 8.8 K/mm3 (4.0-10.0)
[2024-04-02 12:27] LABS: POTASSIUM 4.3 mmol/L (3.5-5.1)
[2024-04-02 12:29] LABS: CALCIUM 8.3 mg/dL (8.5-10.1)
[2024-04-02 12:30] LABS: ALBUMIN 3.2 g/dl (3.4-5.0)
[2024-04-02 12:33] LABS: BILIRUBIN,TOTAL 0.4 mg/dL (0.2-1)
[2024-04-02 15:01] VITALS: BP 111/90; PULSE 82; TEMP 98.4
== END 2024-04-02 18:16 | disposition home or self-care (01) | DRG 603 ==
LOC: JER 17:11 → JERBED 21:15 → J6W 23:24
PROVIDERS: ADMIT Internal Medicine; ATTEND Internal Medicine
PROC: 0J9Q3ZZ Drainage of Right Foot Subcutaneous Tissue and Fascia, Percutaneous Approach (ICD-10-PCS; principal; 2024-03-29)
DX: L03.115 Cellulitis of right lower limb (principal); I50.22 Chronic systolic (congestive) heart failure; E11.65 Type 2 diabetes mellitus with hyperglycemia; I11.0 Hypertensive heart disease with heart failure; E66.9 Obesity, unspecified; Z68.32 Body mass index [BMI] 32.0-32.9, adult; E11.42 Type 2 diabetes mellitus with diabetic polyneuropathy
CPT/HCPCS: 36415; 70450-TC; 71045-TC-FY; 73630-TC-RT-FY; 73718-TC-RT; 80048; 80053; 82550; 82553; 82962; 83036; 83735; 84100; 84484; 85025; 85027; 85651; 86140; 86803; 87040; 87070; 87081; 87186; 87205; 87389; 93005; 93010; 93922; 93925-TC; 99285-25

== ENCOUNTER 2024-08-05 08:30 | Emergency (ER) | payer OTHER ==
[2024-08-05 08:44] VITALS: RESP 20; TEMP 98.3; BMI 32.5
[2024-08-05 09:18] VITALS: BP 155/68; PULSE 83
== END 2024-08-05 09:18 | disposition home or self-care (01) ==
LOC: JER 08:30
DX: E11.9 Type 2 diabetes mellitus without complications (principal); Z79.4 Long term (current) use of insulin
CPT/HCPCS: 99283-25